=== PATIENT | female | born 1985 | race Caucasian/White ===

== ENCOUNTER 2023-12-24 02:38 | Emergency (ER) | payer SELFPAY ==
[2023-12-24 02:45] VITALS: BP 127/98; PULSE 102; RESP 20; TEMP 36.6; O2SAT 97; BMI 33.3
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
[2023-12-24] MEDS: tetanus-dipt-pertussis 0.5 mL SDV IM (03:20)
[2023-12-24 03:22] VITALS: BP 127/98; PULSE 102; RESP 20; TEMP 36.6; O2SAT 97
[2023-12-24] MEDS: cephALEXin 500 mg Capsule PO (03:26)
== END 2023-12-24 03:29 | disposition home or self-care (01) ==
PROVIDERS: Emergency Provider Emergency Medicine
DX: S01.311A Laceration without foreign body of right ear, initial encounter (principal); W22.8XXA Striking against or struck by other objects, initial encounter; Z23 Encounter for immunization
CPT/HCPCS: 12011; 90471; 90715; 99283